=== PATIENT | male | born 1980 | race Caucasian/White ===

== ENCOUNTER 2020-10-20 11:57 | Emergency (ER) | payer OTHER ==
[~2020-10-20] VITALS: Ht 175 cm; Wt 90.0 kg
[~2020-10-20 11:57] MED LIST: CIPR-225 PO; HYDR-87 PO; OMEP20TA2 PO; TMSL.4C PO
[2020-10-20 12:14] LABS: BASOPHILS % (AUTO) 0 % (0-10); EOSINOPHILS # (AUTO) 0.2 10^3/uL (0.0-0.3); EOSINOPHILS % (AUTO) 3 % (0-10); HEMATOCRIT 47 % (40-54); HEMOGLOBIN 16.8 g/dL (13.3-17.7); LYMPHOCYTES # (AUTO) 2.2 10^3/uL (1.0-4.0); LYMPHOCYTES % (AUTO) 30 % (12-44); MEAN CORPUSCULAR HEMOGLOBIN 34 pg (25-34); MEAN CORPUSCULAR HGB CONC 36 g/dL (32-36); MEAN CORPUSCULAR VOLUME 94 fL (80-99); MEAN PLATELET VOLUME 10.7 fL (9.0-12.2); MONOCYTES # (AUTO) 0.5 10^3/uL (0.0-1.0); MONOCYTES % (AUTO) 6 % (0-12); NEUTROPHILS # (AUTO) 4.6 10^3/uL (1.8-7.8); NEUTROPHILS % (AUTO) 61 % (42-75); PLATELET COUNT 281 10^3/uL (130-400); WHITE BLOOD COUNT 7.5 10^3/uL (4.3-11.0)
[2020-10-20] MEDS ORDERED: ANTACID SUSP 30 ML UDC (MYLANTA) PO ONE (12:15)
[2020-10-20] MEDS ORDERED: LIDOCAINE 2% VISCOUS 15 ML UDC PO ONE (12:15)
[2020-10-20] MEDS ORDERED: ASPIRIN 81 MG CHEW (CHILDREN'S ASA) PO ONE (12:15)
--- NOTE | 2020-10-20 12:17 | ED Chest Pain ---
General Chief Complaint: Chest Pain Stated Complaint: ALLERGIC REACTION, Nursing Triage Note: ARRIVED VIA AMB TO ROOM 08 WITH COMPLAINTS OF DRINKING A PROTEIN SHAKE THEN IMMEDIATELY HAVING CHEST AND BACK PAIN. STATES HE FEELS BUBBLE AND IT FEELS BETTER WHEN HE BERPS. Nursing Sepsis Screen: No Definite Risk Source: patient Exam Limitations: no limitations History of Present Illness Date Seen by Provider: Oct 20, 2020 Time Seen by Provider: 12:15 Initial Comments To ER with lower central chest tightness. This began suddenly after drinking a whey protein shake. He felt like it got stuck. He has some belching and this does help improve symptoms when he is able to belch. History of choking on steak about 4 years ago he states but otherwise does not have troubles eating or drinking. Pain persists. He still has his gallbladder. Pain radiates through to his back. Timing/Duration: 1 hour Severity/Quality: severe, pressure, tightness Location: central Radiation: no radiation Activities at Onset: none ASA po HATCHERY SUPERVISOR: No NTG SL HATCHERY SUPERVISOR: No Allergies and Home Medications Allergies Coded Allergies: No Known Drug Allergies (Unverified , 12/14/14) Home Medications Ciprofloxacin HCl 500 Mg Tablet, 500 MG PO BID Prescribed by: GARY ALEXANDRA on 07/24/162316 Hydrocodone/Ibuprofen 1 Each Tablet, 1 EACH PO Q4H Prescribed by: GARY ALEXANDRA on 07/24/162316 Tamsulosin HCl 0.4 Mg Cap, 0.4 MG PO DAILY Prescribed by: GARY ALEXANDRA on 07/24/162316 Patient Home Medication List Home Medication List Reviewed: Yes Review of Systems Review of Systems Constitutional: see HPI EENTM: No Symptoms Reported Respiratory: No Symptoms Reported Cardiovascular: See HPI, Chest Pain Gastrointestinal: See HPI, Abdominal Pain Genitourinary: No Symptoms Reported Musculoskeletal: no symptoms reported Skin: no symptoms reported Psychiatric/Neurological: No Symptoms Reported Endocrine: No Symptoms Reported Past Twohdbh-[id number]-Qyuxjr Hx Patient Social History Recent Infectious Disease Expo: No Recent Hopitalizations: No Past Medical History Surgeries: Yes (dental-wisdom) Respiratory: No Cardiac: No Neurological: No Reproductive Disorders: No Kidney Stones Gastrointestinal: No Musculoskeletal: No Endocrine: No HEENT: No Cancer: No Psychosocial: No Integumentary: No Blood Disorders: No Adverse Reaction/Blood Tranf: No Family Medical History Diabetes Physical Exam Vital Signs Vital Signs - First Documented 10/20/20 11:57 Temp 37.0 Pulse 90 Resp 16 B/P (MAP) 172/109 (130) Pulse Ox 100 O2 Delivery Room Air Capillary Refill : Less Than 3 Seconds Height, Weight, BMI Height: 5'7" Weight: 215lbs. oz. 97.989141eh; 29.00 BMI Method:Stated General Appearance: WD/WN, Obese, Other (Appears uncomfortable) Neck: Full Range of Motion, Normal Inspection Respiratory: Normal Breath Sounds, No Accessory Muscle Use, No Respiratory Distress Cardiovascular: Regular Rate, Rhythm, Normal Peripheral Pulses Gastrointestinal: Non Tender, Soft Extremity: Normal Capillary Refill, Normal Inspection Neurologic/Psychiatric: Alert, Oriented x3 Skin: Normal Color, Warm/Dry Progress/Results/Core Measures Results/Orders Lab Results Laboratory Tests Test 10/20/20 12:05 Range/Units White Blood Count 7.5 4.3-11.0 10^3/uL Red Blood Count 5.00 4.30-5.52 10^6/uL Hemoglobin 16.8 13.3-17.7 g/dL Hematocrit 47 40-54 % Mean Corpuscular Volume 94 80-99 fL Mean Corpuscular Hemoglobin 34 25-34 pg Mean Corpuscular Hemoglobin Concent 36 32-36 g/dL Red Cell Distribution Width 11.7 10.0-14.5 % Platelet Count 281 130-400 10^3/uL Mean Platelet Volume 10.7 9.0-12.2 fL Immature Granulocyte % (Auto) 0 % Neutrophils (%) (Auto) 61 42-75 % Lymphocytes (%) (Auto) 30 12-44 % Monocytes (%) (Auto) 6 0-12 % Eosinophils (%) (Auto) 3 0-10 % Basophils (%) (Auto) 0 0-10 % Neutrophils # (Auto) 4.6 1.8-7.8 10^3/uL Lymphocytes # (Auto) 2.2 1.0-4.0 10^3/uL Monocytes # (Auto) 0.5 0.0-1.0 10^3/uL Eosinophils # (Auto) 0.2 0.0-0.3 10^3/uL Basophils # (Auto) 0.0 0.0-0.1 10^3/uL Immature Granulocyte # (Auto) 0.0 0.0-0.1 10^3/uL Prothrombin Time 12.7 12.2-14.7 SEC INR Comment 0.9 0.8-1.4 Activated Partial Thromboplast Time 31 24-35 SEC Sodium Level 141 135-145 MMOL/L Potassium Level 4.6 3.6-5.0 MMOL/L Chloride Level 107 98-107 MMOL/L Carbon Dioxide Level 24 21-32 MMOL/L Anion Gap 10 5-14 MMOL/L Blood Urea Nitrogen 14 7-18 MG/DL Creatinine 1.22 0.60-1.30 MG/DL Estimat Glomerular Filtration Rate > 60 BUN/Creatinine Ratio 11 Glucose Level 141 H 70-105 MG/DL Calcium Level 9.2 8.5-10.1 MG/DL Corrected Calcium 8.5-10.1 MG/DL Magnesium Level 2.0 1.6-2.4 MG/DL Total Bilirubin 0.6 0.1-1.0 MG/DL Aspartate Amino Transf (AST/SGOT) 38 H 5-34 U/L Alanine Aminotransferase (ALT/SGPT) 79 H 0-55 U/L Alkaline Phosphatase 96 40-136 U/L Myoglobin 38.8 10.0-92.0 NG/ML Troponin I < 0.028 <0.028 NG/ML Total Protein 7.8 6.4-8.2 GM/DL Albumin 4.6 H 3.2-4.5 GM/DL My Orders Orders - [place] [employer] Cbc With Automated Diff (10/20/20 12:08) Magnesium (10/20/20 12:08) Chest 1 View, Ap/Pa Only (10/20/20 12:08) Ekg Tracing (10/20/20 12:08) Comprehensive Metabolic Panel (10/20/20 12:08) Myoglobin Serum (10/20/20 12:08) Protime With Inr (10/20/20 12:08) Partial Thromboplastin Time (10/20/20 12:08) O2 (10/20/20 12:08) Monitor-Rhythm Ecg Trace Only (10/20/20 12:08) Lipid Panel (10/21/20 06:00) Ed Iv/Invasive Line Start (10/20/20 12:08) Troponin I (10/20/20 12:08) Aspirin Chewable Tablet (Baby Aspirin Ch (10/20/20 12:15) Antacid Suspension (Mylanta Suspension (10/20/20 12:15) Lidocaine 2% Viscous 15 Ml (Xylocaine Vi (10/20/20 12:15) Medications Given in ED Current Medications Medications Dose Ordered Sig/Naveen Route Start Time Stop Time Status Last Admin Dose Admin Al Hydrox/Mg Hydrox/Simethicone 30 ml ONCE ONCE PO 10/20/20 12:15 10/20/20 12:16 DC 10/20/20 12:19 30 ML Aspirin 324 mg ONCE ONCE PO 10/20/20 12:15 10/20/20 12:16 DC 10/20/20 12:18 324 MG Lidocaine HCl 10 ml ONCE ONCE PO 10/20/20 12:15 10/20/20 12:16 DC 10/20/20 12:19 10 ML Vital Signs/I&O 10/20/20 11:57 Temp 37.0 Pulse 90 Resp 16 B/P (MAP) 172/109 (130) Pulse Ox 100 O2 Delivery Room Air Blood Pressure Mean: 130 Departure Communication (Admissions) 1301- symptoms have completely resolved, he believes that it was just his esophagus. Feels better with belching though he has some heartburn/reflux symptoms when he does that. He does not take any acid reducers. He believes he just had an esophageal spasm and then a subsequent panic attack. Symptoms were alleviated with a GI cocktail. He feels perfectly fine now we will discharged home. He jokingly states "is this because of my ripped abs?" Impression Primary Impression: Esophageal spasm Disposition: HOME, SELF-CARE Condition: Stable Departure-Patient Inst. Decision time for Depature: 13:02 Referrals: ALEK LAKE DO (PCP/Family) Primary Care Physician Patient Instructions: NO INSTRUCTIONS GIVEN Add. Discharge Instructions: Return to ER for any recurrent or worsening symptoms. Follow-up with Dr. Lake on Friday. Small bites and chew your food well in the meantime. Take Prilosec hisf-nyi-lhblyme 2 tablets (for a total of 40 mg a day) for about a month. Unfortunately I do not think that your ripped abs caused your symptoms. All discharge instructions reviewed with patient and/or family. Voiced understanding. Copy Copies To 1: ALEK LAKE PETER J APRN Oct 20, 2020 12:17
[2020-10-20 12:28] LABS: ALBUMIN 4.6 GM/DL (3.2-4.5); CHLORIDE 107 MMOL/L (98-107); SODIUM 141 MMOL/L (135-145)
[2020-10-20 12:29] LABS: CALCIUM 9.2 MG/DL (8.5-10.1)
[2020-10-20 12:30] LABS: GLUCOSE 141 MG/DL (70-105); INR 0.9 (0.8-1.4); PROTHROMBIN TIME PATIENT 12.7 SEC (12.2-14.7)
[2020-10-20 12:31] LABS: POTASSIUM 4.6 MMOL/L (3.6-5.0); TOTAL PROTEIN 7.8 GM/DL (6.4-8.2)
[2020-10-20 12:32] LABS: BILIRUBIN,TOTAL 0.6 MG/DL (0.1-1.0); CARBON DIOXIDE 24 MMOL/L (21-32)
[2020-10-20 12:34] LABS: ALKALINE PHOSPHATASE 96 U/L (40-136); CREATININE SERUM 1.22 MG/DL (0.60-1.30); GFR ESTIMATED > 60
[2020-10-20 12:35] LABS: BUN/CREATININE RATIO 11
[2020-10-20 12:37] LABS: ALANINE AMINOTRANSFERASE 79 U/L (0-55)
--- NOTE | 2020-10-20 12:42 | Diagnostic Imaging Report ---
INDICATION: Chest pain Frontal chest obtained at 12:34 p.m. and compared to 12/14/2014. Heart and mediastinal silhouette are normal in appearance. Lungs appear clear. There is no pneumothorax or pleural fluid. IMPRESSION: Negative chest. Dictated by: Dictated on workstation # [id number]
[2020-10-20 13:09] VITALS: BP 148/117
== END 2020-10-20 13:09 | disposition home or self-care (01) ==
LOC: EDUNIT# 11:57 → ER 11:59
DX: K22.4 Dyskinesia of esophagus (principal); E66.9 Obesity, unspecified; Z68.29 Body mass index [BMI] 29.0-29.9, adult; Z83.3 Family history of diabetes mellitus
CPT/HCPCS: 36415; 71045; 80053; 83735; 83874; 84484; 85025; 85610; 85730; 93041